=== PATIENT | female | born 1935 | race Caucasian/White ===

== ENCOUNTER 2020-01-21 11:44 | Inpatient (IN) | payer OTHER ==
[~2020-01-21] VITALS: Ht 157.5 cm; Wt 54.3 kg
[2020-01-21] MEDS ORDERED: SODIUM CHLORIDE 0.9% 500 ML IV ONE (11:59)
[2020-01-21 12:48] LABS: Basophils # (auto) 0 10 ^3/uL (0-0.2); Basophils % (auto) 0.2 % (0.0-2.0); Eosinophils # (auto) 0 10 ^3/uL (0-0.8); Lymphocytes # (auto) 0.3 10 ^3/uL (0.4-5.4); Lymphocytes % (auto) 3.4 % (10.0-50.0); Mean Corpuscular Hemoglobin 31.7 pg (28.0-32.0); Mean Corpuscular Hgb Conc. 33.4 g/dL (32.0-36.0); Mean Corpuscular Volume 94.9 fL (80.0-100.0); Monocytes # (auto) 0.2 10 ^3/uL (0-1.3); Monocytes % (auto) 2.4 % (0.0-12.0); Nucleated Red Blood Cells % 0.1 %; Platelet Count (auto) 224 10^3/uL (140-450); Red Blood Cells 4.43 10^6/uL (4.0-5.20); White Blood Cell 9.6 10^3/uL (4.4-10.8)
[2020-01-21 12:57] LABS: Alanine Aminotransferase 24 U/L (13-56); Albumin 3.7 g/dL (3.4-5.0); Anion Gap 18 (5-15); Aspartate Aminotransferase 20 U/L (15-37); BUN/Creatinine Ratio 19.6; Blood Urea Nitrogen 20 mg/dL (7-18); Calcium 9.5 mg/dL (8.5-10.1); Carbon Dioxide 18 mmol/L (21-32); Chloride 100 mmol/L (98-107); GFR African American 67 mL/min; GFR Non-African American 55 mL/min; Potassium 3.4 mmol/L (3.5-5.1); Sodium 136 mmol/L (136-145)
[2020-01-21 13:00] LABS: Alkaline Phosphatase 89 U/L (45-117); Bilirubin, Total 0.8 mg/dL (0.2-1.0); Total Protein 7.7 g/dL (6.4-8.2)
[2020-01-21 13:02] LABS: Glucose 472 mg/dL (74-106)
[2020-01-21] MEDS ORDERED: cloNIDine HCL 0.1 MG TAB PO ONE (13:45)
[2020-01-21] MEDS ORDERED: InsuLIN REG 1unit/0.01ml Soln (100units/ml) IV ONE (13:45)
[2020-01-21] MEDS ORDERED: LABETALOL HCL 5 MG/ML 4ML SYRINGE IV PRN (14:15)
[2020-01-21] MEDS ORDERED: NITROGLYCERIN 0.4 MG SL TAB SL PRN (14:15)
[2020-01-21] MEDS ORDERED: MORPHINE SULF INJ 2 MG/ML SYRINGE 1ML IV PRN (14:15)
[2020-01-21] MEDS ORDERED: DEXTROSE (50%) 50ML SYRG IV PRN (14:15)
[2020-01-21] MEDS ORDERED: LABETALOL HCL 5 MG/ML 4ML SYRINGE IV ONE (14:15)
[2020-01-21] MEDS ORDERED: TEMAZEPAM 15 MG CAP PO PRN (14:45)
[2020-01-21] MEDS ORDERED: POTASSIUM EFFERVESENT TAB 25 MEQ PO ONE (14:45)
[2020-01-21] MEDS ORDERED: ONDANSETRON HCL 4 MG/2 ML VIAL IV PRN (14:45)
[2020-01-21] MEDS ORDERED: traMADol HCL 50 MG TAB PO PRN (14:45)
[2020-01-21] MEDS ORDERED: ACETAMINOPHEN 500 MG TAB PO PRN (14:45)
[2020-01-21] MEDS ORDERED: ACCU-CHEK COMFORT CURVE STRIP VI SCH (16:00)
[2020-01-21] MEDS: InsuLIN REG 1unit/0.01ml Soln (100units/ml) SC SCH ×3 (17:53→22:59)
[2020-01-21] MEDS ORDERED: InsuLIN REG 1unit/0.01ml Soln (100units/ml) SC SCH (18:00)
[2020-01-21] MEDS: ACCU-CHEK COMFORT CURVE STRIP VI SCH ×3 (18:05→22:58)
--- NOTE | 2020-01-21 18:05 | NUR ---
Telemetry admit from ER STILL,AWAIS admitted to Telemetry unit after verbal report received from COOKIE Laguerre, ER. Patient oriented to Gayla Coats, primary RN, unit, room, bed, and unit policies regarding patient care and visiting hours. Patient is awake, alert and oriented X2, to self and situation. Patient is very forgetful requiring frequent reorienting. Patient now on continuous telemetry monitoring, tele box # 51 and telemetry reading on arrival to unit is sinus rhythm @ 76 bpm. IV to left forearm, 18 gauge, patent and saline locked. Plan of care discussed with patient, weighed by bed scale and encouraged to call if they need something. All questions and concerns addressed, patient verbalized understanding. Bed locked, in lowest position, call light within reach, bed alarm on for patient safety, will continue to monitor Q 1 hour and PRN.
--- NOTE | 2020-01-21 19:38 | NUR ---
Care endorsed to COOKIE Pascual, night nurse.
--- NOTE | 2020-01-21 19:38 | NUR ---
Opening Shift Note Assumed care of patient, eyes closed, respirations even and unlabored, appears asleep. No S/S of distress/SOB or pain. Bed in lowest locked position, side rails up x2, call light within reach, bed alarm on. Instructed on POC and to call for assist PRN, will continue to monitor for changes Q1hr and PRN.
--- NOTE | 2020-01-21 21:00 | NUR ---
Patient attempting multiple times to get out of bed without calling for assistance. Patient determined to need a manager drug safety, spoke with charge nurse Mer GARY, patient to go to room 218 A to have manager drug safety. Patient will transfer to new room after room cleaned. Will continue care. Addendum: 01/21/20 at 2234 by KAREN KEY RN RN ADDITION: Patient pleasantly confused, reorienting PRN. Will continue care.
[2020-01-21 22:00] VITALS: BP 107/62
--- NOTE | 2020-01-21 22:12 | NUR ---
Patient transferred to room 218 A without incident and with all belongings. Multiple attempts made to obtain ordered 22:00 blood sugar check, patient continuing to refuse and becoming agitated. Report given to Allie GARY for continuation of care and care endorsed with all questions and concerns addressed.
--- NOTE | 2020-01-21 22:14 | NUR ---
Received patient transfer from [place] in room 278 to room 218-A, need a sitter, awake very confused, not in respiratory distress, resistive to care.
--- NOTE | 2020-01-21 22:20 | NUR ---
Received report from David Pascual, to assume care with a sitter.
[2020-01-22] MEDS: ACCU-CHEK COMFORT CURVE STRIP VI SCH ×6 (01:28→22:00)
[2020-01-22] MEDS: InsuLIN REG 1unit/0.01ml Soln (100units/ml) SC SCH ×6 (01:30→22:00)
[2020-01-22 05:06] VITALS: BP 127/63
--- NOTE | 2020-01-22 07:09 | NUR ---
Report given to David Drew to assume care, patient is resting no distress, sitter at bedside.
[2020-01-22 09:00] VITALS: BP 171/76
[2020-01-22] MEDS ORDERED: LISINOPRIL 5 MG TAB PO SCH (10:00)
[2020-01-22 13:00] VITALS: BP 162/88
[2020-01-22] MEDS ORDERED: THROAT LOZENGES(CEPASTAT) MT PRN (13:30)
--- NOTE | 2020-01-22 14:00 | NUR ---
Arroyo catheter insertion Patient assessed and determined to be in need of arroyo catheter. Order obtained from MD. Patient educated on catheter and reason for insertion. All questions answered. Arroyo catheter 16 gauge Kyrgyz inserted with clean sterile technique. Patient tolerated well. Urinalysis sent to lab. Awaiting results.
[2020-01-22 14:15] LABS: Basophils # (auto) 0 10 ^3/uL (0-0.2); Basophils % (auto) 0.3 % (0.0-2.0); Eosinophils # (auto) 0 10 ^3/uL (0-0.8); Eosinophils % (auto) 0.4 % (0.0-7.0); Hematocrit 38.2 % (36.0-46.0); Hemoglobin 12.7 g/dL (12.2-16.2); Lymphocytes % (auto) 11.1 % (10.0-50.0); Mean Corpuscular Hgb Conc. 33.3 g/dL (32.0-36.0); Mean Corpuscular Volume 93.1 fL (80.0-100.0); Monocytes # (auto) 0.8 10 ^3/uL (0-1.3); Monocytes % (auto) 8.5 % (0.0-12.0); Neutrophils # (auto) 7.2 10 ^3/uL (1.6-8.6); Neutrophils % (auto) 79.7 % (37.0-80.0); Platelet Count (auto) 220 10^3/uL (140-450)
[2020-01-22 14:30] LABS: INR 1.06 (0.9-1.15); Partial Thromboplastin Time 30.1 sec (23.64-32.05)
[2020-01-22 14:32] LABS: Albumin 2.9 g/dL (3.4-5.0); Calcium 8.8 mg/dL (8.5-10.1); Magnesium 1.9 mg/dL (1.6-2.6); Potassium 3.6 mmol/L (3.5-5.1)
[2020-01-22 14:36] LABS: BUN/Creatinine Ratio 26.9; Bilirubin, Total 0.7 mg/dL (0.2-1.0); Phosphorus 2.9 mg/dL (2.5-4.90); Total Protein 6.1 g/dL (6.4-8.2)
--- NOTE | 2020-01-22 15:20 | NUR ---
Call to Lab tube test technician states they have received urine.
[2020-01-22] MEDS: SODIUM CHLORIDE 0.9% 1,000 ML IV SCH ×2 (15:27→23:30)
[2020-01-22 15:45] LABS: Urine Bacteria MANY /hpf (None Seen); Urine Blood Negative /uL (Negative); Urine Mucus FEW (None Seen); Urine Specific Gravity 1.013 (1.001-1.035); Urine WBC 32 /hpf (0 - 5)
[2020-01-22] MEDS ORDERED: IOHEXOL 300 MG/ML 100ML BOTTLE IJ ONE (15:49)
--- NOTE | 2020-01-22 16:00 | NUR ---
Call to Patient's daughter Call to patient's daughter at this time to obtain consents for patient's imaging. Left a message. Awaiting callback.
[2020-01-22 17:00] VITALS: BP 111/70
[2020-01-22] MEDS: cefTRIAXone 1GM/50ML D5W 50 ML IV SCH (17:16)
--- NOTE | 2020-01-22 19:30 | NUR ---
Closing Shift Note Patient resting in bed. No distress noted. Report given. Will endorse care to the assistant shift supervisor RN.
--- NOTE | 2020-01-22 19:31 | NUR ---
Opening Shift Note Assumed care of patient, awake and alert. Sitter on bedside. No S/S of distress/SOB or pain. Instructed on POC and to call for assist PRN, will continue to monitor for changes Q1hr and PRN.
[2020-01-22 22:20] VITALS: BP 103/57
[2020-01-23] MEDS: ACCU-CHEK COMFORT CURVE STRIP VI SCH ×6 (02:00→22:00)
[2020-01-23] MEDS: InsuLIN REG 1unit/0.01ml Soln (100units/ml) SC SCH ×6 (02:00→22:00)
[2020-01-23 05:30] VITALS: BP 138/62
[2020-01-23 06:55] LABS: BUN/Creatinine Ratio 23.8; Calcium 8.6 mg/dL (8.5-10.1); Magnesium 1.8 mg/dL (1.6-2.6); Phosphorus 2.5 mg/dL (2.5-4.90)
[2020-01-23 06:58] LABS: Potassium 2.9 mmol/L (3.5-5.1)
--- NOTE | 2020-01-23 07:00 | NUR ---
Opening Shift Note Assumed care of patient, awake and alert. Sitter at bedside for safety and reorientation. No S/S of distress/SOB or pain. Night COOKIE Glasgow received a critical lab 2.[address] orders received from Dr Xander Calderon to be carried out.Instructed on POC and to callfor assist PRN, will continue to monitor for changes Q1hr and PRN.
--- NOTE | 2020-01-23 07:00 | NUR ---
CRITICAL POTASSIUM 2.9
--- NOTE | 2020-01-23 07:30 | NUR ---
RECEIVED POTASSIUM ORDER FROM DOCTOR HOLLEY
[2020-01-23] MEDS ORDERED: POTASSIUM CHL 20 Meq TABLET PO ONE (07:45)
[2020-01-23 09:00] VITALS: BP 118/72
[2020-01-23] MEDS: SODIUM CHLORIDE 0.9% 1,000 ML IV SCH ×2 (10:41→19:30)
[2020-01-23] MEDS: cefTRIAXone 1GM/50ML D5W 50 ML IV SCH (10:41)
[2020-01-23] MEDS: LISINOPRIL 5 MG TAB PO SCH (10:43)
[2020-01-23] MEDS ORDERED: POLYETHYLENE GLYCOL 17 GM PWDR PO ONE ×2 (11:15→11:30)
[2020-01-23 13:00] VITALS: BP 114/65
[2020-01-23] MEDS ORDERED: MAGNESIUM OXIDE 400 MG TAB PO ONE (13:15)
[2020-01-23] MEDS ORDERED: POTASSIUM EFFERVESENT TAB 25 MEQ PO ONE (13:15)
[2020-01-23 16:47] VITALS: BP 136/74
[2020-01-23] MEDS: ALPRAZolam 0.25 MG TAB PO PRN (17:05)
--- NOTE | 2020-01-23 19:00 | NUR ---
Opening Shift Note Assumed care of patient, awake and alert. Sitter on bedside No S/S of distress/SOB or pain. Instructed on POC and to call for assist PRN, will continue to monitor for changes Q1hr and PRN.
--- NOTE | 2020-01-23 19:09 | NUR ---
ENDORSED CARE TO NIGHT RN.
[2020-01-23 22:00] VITALS: BP 110/60
[2020-01-23] MEDS: MAGNESIUM OXIDE 400 MG TAB PO SCH (23:50)
[2020-01-24] MEDS: InsuLIN REG 1unit/0.01ml Soln (100units/ml) SC SCH ×6 (02:00→22:00)
[2020-01-24] MEDS: ACCU-CHEK COMFORT CURVE STRIP VI SCH ×6 (02:00→22:00)
[2020-01-24 05:05] VITALS: BP 121/74
[2020-01-24 06:40] LABS: Calcium 7.9 mg/dL (8.5-10.1); Potassium 3.1 mmol/L (3.5-5.1)
[2020-01-24 06:42] LABS: BUN/Creatinine Ratio 25.4
--- NOTE | 2020-01-24 07:00 | NUR ---
Opening Shift Note Assumed care of patient, awake and alert. Sitter at bedside for safety and reorientation. No S/S of distress/SOB or pain. Potassium improved from 2.9 to 3.1.Instructed on POC and to callfor assist PRN, will continue to monitor for changes Q1hr and PRN.
[2020-01-24] MEDS: cefTRIAXone 1GM/50ML D5W 50 ML IV SCH (08:18)
[2020-01-24] MEDS: SODIUM CHLORIDE 0.9% 1,000 ML IV SCH (08:18)
[2020-01-24 08:37] LABS: Folate (Folic Acid) 11.05 ng/mL (5.38-24)
[2020-01-24 09:00] VITALS: BP 125/68
[2020-01-24] MEDS: POLYETHYLENE GLYCOL 17 GM PWDR PO SCH (09:51)
[2020-01-24] MEDS: MAGNESIUM OXIDE 400 MG TAB PO SCH ×2 (09:51→22:21)
[2020-01-24] MEDS: LISINOPRIL 5 MG TAB PO SCH (09:51)
[2020-01-24] MEDS ORDERED: POTASSIUM CHLORIDE 40 MEQ, LIDOCAINE 1% (LOCAL ANESTH.) 4 ML in SODIUM CHL 0.9% 100 ML IV ONE (11:30)
[2020-01-24] MEDS ORDERED: POTASSIUM CHL 20 Meq TABLET PO ONE (11:30)
--- NOTE | 2020-01-24 12:31 | NUR ---
Nutrition Assessment Notes please see attached link for complete assessment Est. Needs BW (48 kg): 2334-9800 kcal (25-30 kcal/kgBW), 48-57 gms pro (1.0-1.2 gms/kgBW). Will continue to monitor pertinent labs and reassess nutrient need prn Addendum: 01/24/20 at [address] Amended: Links added.
[2020-01-24 13:00] VITALS: BP 123/64
--- NOTE | 2020-01-24 14:39 | NUR ---
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 Addendum: 01/24/20 at 1440 by ALIZA DUARTE PTT Amended: Links added.
[2020-01-24] MEDS: ALPRAZolam 0.25 MG TAB PO PRN (15:09)
[2020-01-24 16:58] VITALS: BP 116/65
[2020-01-24] MEDS: TAMSULOSIN HYDROCHLORIDE 0.4 MG CAP PO SCH (17:58)
--- NOTE | 2020-01-24 19:00 | NUR ---
Opening Shift Note Assumed care of patient, awake,alert&oriented x2. Sitter on bedside. No S/S of distress/SOB or pain. Instructed sitter on POC and to call for assist PRN, will continue to monitor for changes Q1hr and PRN.
--- NOTE | 2020-01-24 19:08 | NUR ---
ENDORSED CARE TO NIGHT COOKIE SAHNI.
[2020-01-24 22:00] VITALS: BP 111/82
[2020-01-25] MEDS: InsuLIN REG 1unit/0.01ml Soln (100units/ml) SC SCH ×6 (02:00→22:25)
[2020-01-25] MEDS: ACCU-CHEK COMFORT CURVE STRIP VI SCH ×6 (02:00→22:27)
[2020-01-25 04:52] VITALS: BP 128/72
--- NOTE | 2020-01-25 07:00 | NUR ---
Reoriented pt in time and location, Pt knows that family is looking to help her with a placement in a assisted living facility.
[2020-01-25 07:02] LABS: BUN/Creatinine Ratio 25.6; Calcium 8.5 mg/dL (8.5-10.1); Potassium 3.8 mmol/L (3.5-5.1)
--- NOTE | 2020-01-25 07:30 | NUR ---
ROUNDS PT RESTING IN BED AWAKE AND ALERT. CONVERSATION SCATTERED, BUT PT AWARE OF WHO SHE IS AND WHERE SHE IS. PT STATES THAT HER DAUGHTER DOES NOT HAVE GOOD INTENTIONS REGARDING HER CARE AND THAT HER SON HAS BEEN AN ACTIVE PART OF HER CURRENT DECISIONS. PT TELE IN PLACE, RESPIRATIONS EQUAL AND UNLABORED ON ROOM AIR. BED IN LOW POSITION, ALL LIGHT IN REACH WILL CONTINUE TO MONITOR
[2020-01-25 09:00] VITALS: BP 139/58
[2020-01-25] MEDS: POLYETHYLENE GLYCOL 17 GM PWDR PO SCH (10:00)
--- NOTE | 2020-01-25 10:50 | NUR ---
DR ZAIDI AT BEDSIDE
[2020-01-25] MEDS: cefTRIAXone 1GM/50ML D5W 50 ML IV SCH (12:35)
[2020-01-25] MEDS: LISINOPRIL 5 MG TAB PO SCH (12:36)
[2020-01-25] MEDS: MAGNESIUM OXIDE 400 MG TAB PO SCH ×2 (12:41→22:24)
[2020-01-25 13:00] VITALS: BP 136/64
--- NOTE | 2020-01-25 16:09 | NUR ---
KARTHIKEYAN SPOKE TO HER IN STATION. SHE WORKING ON PLACEMENT AND WILL BE COMMUNICATING WITH PTS SON AND DAUGHTER RE PLACEMENT AND TRANSPORTATION COSTS.
--- NOTE | 2020-01-25 16:51 | NUR ---
I called [facility] and spoke with briefcase sewer Violeta asking about transportation benefits-she referred me to [facility] customer service. I called customer service [phone] and spoke with Alaina, she informed me that patient does not have transportation benefits-I informed forensic social worker Nenita.
--- NOTE | 2020-01-25 16:54 | NUR ---
Assessment Patient is an 84-year old female who is confused. Assessment was completed by patient son Shoaib ) and patient daughter Katy ) via conference call. Prior to admission patient lived home with alone and functioned independently. Per Shoaib and Katy patient care for her own ADLs. Katy informed me patient has a walker and wheelchair for home use. Katy informed me patient receives an amount of 1,250 from [facility]. Advised patient son Shoaib and Katy there is a Social Service for [facility] facility. Informed Steven order will be faxed to contracted facilities advising them its a possibility patient might have to be placed out of area due to patient health plan. Shoaib and Katy stated they are both looking for oysterman placement. Informed Shoaib and Katy they both have the right to participate in all discharge planning. Shoaib and Katy verbalized understanding and agrees to discharge plan. Faxed clinical information to [facility], [facility], [facility] and [facility]. Per Susannah with [facility] they are not contracted with patient health plan. [facility] and [facility] both accepted patient. Placed call to Katy advising her of accepting facility. Per Katy she would like to speak to doctor regarding patient well-being. Placed call to Dr. Robina Raymundo regarding family concerns. Per Dr. Robina Raymundo he will call family. Addendum: 01/25/20 at 1655 by SAMUEL CARBAJAL Amended: Links added.
[2020-01-25 17:00] VITALS: BP 119/62
[2020-01-25] MEDS: TAMSULOSIN HYDROCHLORIDE 0.4 MG CAP PO SCH ×2 (18:00→18:08)
--- NOTE | 2020-01-25 20:00 | NUR ---
Opening Shift Note Assumed care of patient. Awake and alert to self only. Periods of confusion. No S/S of distress/SOB or pain. Instructed on POC and to call for assist PRN. Call light within reach, bed locked, in lowest position, bed rails up x2, bed alarm on. Will continue to monitor for changes Q1hr and PRN.
[2020-01-25 22:00] VITALS: BP 110/65
[2020-01-25] MEDS: INSULIN LANTUS (GLARGINE) 1 /0.01ml (100units/ml) SC SCH (22:26)
[2020-01-25] MEDS: ALPRAZolam 0.25 MG TAB PO PRN (22:27)
--- NOTE | 2020-01-25 23:54 | NUR ---
Transfer of care Patient has been continually getting out of bed with bed alarm in place. Patient is A&O to self with confusion and unable to be reoriented. Patient is in need of a sitter for safety. backend python developer notified. Care endorsed to Susan GARY
--- NOTE | 2020-01-26 00:30 | NUR ---
Patient was transferred from [facility]. Patient was in need of a sitter for her safety. Patient kept getting out of bed and was confused. Transfer of care to a sitter room for patients safety. Report received from COOKIE Morris. Will continue to monitor patient.
[2020-01-26] MEDS: InsuLIN REG 1unit/0.01ml Soln (100units/ml) SC SCH ×6 (02:00→22:00)
[2020-01-26] MEDS: ACCU-CHEK COMFORT CURVE STRIP VI SCH ×6 (02:21→22:00)
[2020-01-26 05:00] VITALS: BP 132/66
[2020-01-26] MEDS: INSULIN LANTUS (GLARGINE) 1 /0.01ml (100units/ml) SC SCH ×2 (06:44→22:16)
[2020-01-26] MEDS: cefTRIAXone 1GM/50ML D5W 50 ML IV SCH (08:49)
[2020-01-26] MEDS: POLYETHYLENE GLYCOL 17 GM PWDR PO SCH (08:50)
[2020-01-26 09:00] VITALS: BP 119/69
--- NOTE | 2020-01-26 09:00 | NUR ---
Pt requested PT tx later. Addendum: 01/26/20 at 1212 by Gustavo De La Paz GROUNDSMAN Amended: Links added.
[2020-01-26] MEDS: LISINOPRIL 5 MG TAB PO SCH (10:00)
[2020-01-26] MEDS: MAGNESIUM OXIDE 400 MG TAB PO SCH ×2 (11:04→22:00)
[2020-01-26] MEDS: ALPRAZolam 0.25 MG TAB PO PRN (11:17)
--- NOTE | 2020-01-26 11:57 | NUR ---
Dr. Quarles at bed side, discussing POC with patient. Patient verbalizes understanding. Plan to dc to SNF today, pending transport arrangement.
[2020-01-26 13:00] VITALS: BP 121/61
--- NOTE | 2020-01-26 13:50 | NUR ---
Per sitter, patient pulled off IV. Catheter full and intact, pressure dressing applied to site, no trauma noted. Will insert new iv access.
--- NOTE | 2020-01-26 14:00 | NUR ---
IV insertion IV access obtained, via clean sterile technique by inserting 22 gauge catheter at right forearm after 1attempt. IV secured properly. No trauma to site. Patient tolerated well.
--- NOTE | 2020-01-26 16:34 | NUR ---
D/C Planning Placed call to patient son Shoaib this morning at 9:07. Per Shoaib he would like patient to be placed at [facility] in [place]. Informed Shoaib patient jean plan does not cover transportation and provided him with (250dlls) [employer] transportation and (380dlls) [employer] Transportation quote. Shoaib agrees to pay for transportation and will bring a check on . Placed call to Maya with [facility] regarding patient. Per Maya patient has been accepted to room 401 bed a accepting , Dr. Westbrook. [employer] transportation Ph: ) is ON WILL CALL. Notify , Dr. Quarles and COOKIE Obregon.
[2020-01-26 17:00] VITALS: BP 106/62
[2020-01-26] MEDS: TAMSULOSIN HYDROCHLORIDE 0.4 MG CAP PO SCH (17:48)
--- NOTE | 2020-01-26 19:00 | NUR ---
Opening Shift Note Assumed care of patient, patient is sleeping at this time of assessment, patient coming in and out of sleep. Breath sounds normal and heart sounds normal. No S/S of distress/SOB or pain. Sitter at bedside, will continue to monitor patient. Tele box 64 reading 72bpm in NSR. Patient in the lowest possible position with call light within reach.
[2020-01-26 22:00] VITALS: BP 105/52
[2020-01-27] MEDS: InsuLIN REG 1unit/0.01ml Soln (100units/ml) SC SCH ×5 (02:00→18:00)
[2020-01-27] MEDS: ACCU-CHEK COMFORT CURVE STRIP VI SCH ×5 (02:09→18:00)
[2020-01-27 05:00] VITALS: BP 116/66
[2020-01-27] MEDS: INSULIN LANTUS (GLARGINE) 1 /0.01ml (100units/ml) SC SCH (06:24)
--- NOTE | 2020-01-27 06:51 | NUR ---
Closing shift Patient in lowest possible position with bed rails up x2 and call light within reach. Sitter at bedside, no complaints of pain from patient. Will endorse to day shift RN Summer.
--- NOTE | 2020-01-27 07:30 | NUR ---
Opening Note Received report form police shift commander RN. Patient is awake, alert and oriented. No signs or symptoms of distress noted at this time. Patient is on room air, respirations even and unlabored. Patient denies pain at this time. Sitter at bedside for safety. Will continue to monitor Q1 hour and PRN.
[2020-01-27 08:51] VITALS: BP 120/56
[2020-01-27] MEDS: LISINOPRIL 5 MG TAB PO SCH (08:54)
[2020-01-27] MEDS: cefTRIAXone 1GM/50ML D5W 50 ML IV SCH (08:54)
[2020-01-27] MEDS: MAGNESIUM OXIDE 400 MG TAB PO SCH (08:55)
[2020-01-27] MEDS: POLYETHYLENE GLYCOL 17 GM PWDR PO SCH (08:58)
--- NOTE | 2020-01-27 10:26 | NUR ---
Dr. Quarles at bedside Discussing plan of care with patient and this RN. Patient to transfer to SNF today. Will continue to monitor Q1 hour and PRN. Sitter at bedside for safety.
--- NOTE | 2020-01-27 10:30 | NUR ---
D/C Planning Patient family brought payment for [facility] transportation. [facility] Transportation has been arranged at 13:00 via [employer]. Informed RN Summer. Notify , Dr. Quarles.
--- NOTE | 2020-01-27 12:00 | NUR ---
Castellanos catheter removed Order to discontinue Castellanos catheter. Castellanos removed with clean technique following deflation of balloon. Patient tolerated well with no complaints of pain. Will continue to monitor Q1 hour and PRN.
--- NOTE | 2020-01-27 13:25 | NUR ---
Attempted to give report to Micky left on hold 15 minutes. will call back
--- NOTE | 2020-01-27 13:40 | NUR ---
Attempted to call report again left on hold again. Will call back
--- NOTE | 2020-01-27 14:11 | NUR ---
Attempted to call report two more times person that answered phone call states they can not find the nurse that is to take report.
--- NOTE | 2020-01-27 15:05 | NUR ---
Report given to Eliza guerra [place] All questions and concerns addressed. Awaiting transportation. Will continue to monitor Q1 hour and PRN.
--- NOTE | 2020-01-27 16:10 | NUR ---
TRANSFER TO SNF Discharge instructions given as ordered. Patient transferring to [facility] by [employer] transportation. Encourage to follow up with PMD as instructed. All questions and concerns addressed. Patient verbalized understanding. Medication reconciliation form completed and copy given to patient. IV catheter removed, catheter intact. campus monitor removed and sent back to ICU. Patient transferred with all personal belonging. No signs or symptoms of distress noted at this time. Check given to transportation.
[2020-01-27] MEDS: TAMSULOSIN HYDROCHLORIDE 0.4 MG CAP PO SCH (18:00)
== END 2020-01-27 16:40 | DRG 638 ==
LOC: EDAGE 11:44 → ER 11:44 → TELE 11:45 → TELE-WESTW 17:57 → TELE-CENTR 22:12 → TELE-WESTW 01-26 00:42
PROVIDERS: ADMIT Internal Medicine; ATTEND Internal Medicine
DX: E11.10 Type 2 diabetes mellitus with ketoacidosis without coma (principal); N13.30 Unspecified hydronephrosis; Z68.1 Body mass index [BMI] 19.9 or less, adult; E11.65 Type 2 diabetes mellitus with hyperglycemia; I16.0 Hypertensive urgency; R55 Syncope and collapse; E87.6 Hypokalemia; I10 Essential (primary) hypertension; Z53.20 Procedure and treatment not carried out because of patient's decision for unspecified reasons; F03.90 Unspecified dementia, unspecified severity, without behavioral disturbance, psychotic disturbance, mood disturbance, and anxiety; Z66 Do not resuscitate; R63.4 Abnormal weight loss; Z82.49 Family history of ischemic heart disease and other diseases of the circulatory system; Z83.3 Family history of diabetes mellitus
CPT/HCPCS: 36415; 36600; 70450; 71045; 71260; 74177; 80048; 80053; 81001; 82010; 82607; 82746; 82805; 82962; 83036; 83735; 83930; 83935; 84100; 84443; 84484; 85025; 85610; 85730; 87086; 93306; 97110; 97116; 97163; 97530; G0378; J0696; J1815; J2001; J2405; J3490

== ENCOUNTER 2021-03-04 13:06 | Emergency (ER) | payer OTHER ==
[~2021-03-04] VITALS: Ht 154.9 cm; Wt 54.4 kg
[2021-03-04 15:40] VITALS: BP 133/68
== END 2021-03-04 16:54 | disposition home or self-care (01) ==
LOC: EDBD 13:06 → ER 13:06
DX: S10.15XA Superficial foreign body of throat, initial encounter (principal); I10 Essential (primary) hypertension; E11.9 Type 2 diabetes mellitus without complications; W45.8XXA Other foreign body or object entering through skin, initial encounter; Y93.89 Activity, other specified; Y92.89 Other specified places as the place of occurrence of the external cause; Y99.8 Other external cause status
CPT/HCPCS: 71250